=== PATIENT | female | born 1990 ===

== ENCOUNTER 2016-09-25 00:10 | Emergency (ER) | payer BC, OTHER ==
[2016-09-25 00:18] VITALS: BP 116/63; PULSE 76; RESP 16; TEMP 97.9; O2SAT 98
--- NOTE | 2016-09-25 01:28 | ED PDOC ---
HPI: General Adult Time Seen by Provider: 09/25/16 01:05 Chief Complaint (Nursing): Shortness Of Breath Chief Complaint (Provider): SOB, anxiety History Per: Patient History/Exam Limitations: no limitations Onset/Duration Of Symptoms: Hrs Have you had recent travel within the past 21 days to any of the following countries: [place], [place], [place] or [place]?: No Current Symptoms Are (Timing): Still Present Additional Complaint(s): 25yo female with no PMHx presents to the ED with c/o difficulty breathing and anxiety. Patient reports she began feeling anxious about an exam she has in October and subsequently began to experience shortness of breath. Denies fever, cough, chest pain, v/d, abdominal pain, recent travel, leg swelling. Past Medical History Reviewed: Historical Data, Nursing Documentation, Vital Signs Vital Signs: Last Vital Signs Temp 97.9 F 09/25/16 00:15 Pulse 76 09/25/16 00:15 Resp 16 09/25/16 00:30 BP 116/63 09/25/16 00:15 Pulse Ox 98 09/25/16 01:36 - Medical History PMH: No Chronic Diseases - Surgical History Surgical History: No Surg Hx - Family History Family History: States: No Known Family Hx - Social History Current smoker - smoking cessation education provided: No Alcohol: None Drugs: Denies - Home Medications Home Medications: Ambulatory Orders Medication Instructions Recorded Famotidine [Pepcid] 20 mg PO BID #20 tab 05/24/16 Nitrofurantoin Macrocrystals 100 mg PO BID #14 cap 05/24/16 [Macrobid] Ondansetron [Zofran Odt] 4 mg PO Q8H PRN #15 odt 05/24/16 - Allergies Allergies/Adverse Reactions: Allergies Allergy/AdvReac Type Severity Reaction Status Date / Time No Known Allergies Allergy Verified 05/24/16 10:26 Review of Systems ROS Statement: Except As Marked, All Systems Reviewed And Found Negative Constitutional: Negative for: Fever Cardiovascular: Negative for: Chest Pain Respiratory: Positive for: Shortness of Breath. Negative for: Cough Gastrointestinal: Negative for: Vomiting, Abdominal Pain, Diarrhea Psych: Positive for: Anxiety. Negative for: Depression, Psychosis, Suicidal ideation Physical Exam - Reviewed Nursing Documentation Reviewed: Yes Vital Signs Reviewed: Yes - Physical Exam Appears: Positive for: Well, No Acute Distress Head Exam: Positive for: ATRAUMATIC, NORMAL INSPECTION, NORMOCEPHALIC Skin: Positive for: Normal Color, Warm, Dry Eye Exam: Positive for: Normal appearance, EOMI, PERRL ENT: Positive for: Normal ENT Inspection Neck: Positive for: Normal, Painless ROM, Supple Cardiovascular/Chest: Positive for: Regular Rate, Rhythm. Negative for: Murmur , Tachycardia Respiratory: Positive for: Normal Breath Sounds. Negative for: Wheezing, Respiratory Distress Gastrointestinal/Abdominal: Positive for: Normal Exam, Bowel Sounds, Soft. Negative for: Tenderness Back: Positive for: Normal Inspection. Negative for: L CVA Tenderness, R CVA Tenderness Extremity: Positive for: Normal ROM. Negative for: Deformity, Swelling Neurologic/Psych: Positive for: Alert, Oriented, Mood/Affect (anxious ). Negative for: Motor/Sensory Deficits - ECG O2 Sat by Pulse Oximetry: 98 Pulse Ox Interpretation: Normal (RA) Medical Decision Making Medical Decision Makin: Impression: anxiety, r/o PE vs. atypical chest pain Plan: Labs reassess Pt refusing to stay for completion of workup and treatment. states she had bloodwork done last week and understands she is leaving without workup. understands she must follow up wtih her primary doctor tomrow. and if symptoms worsen to come back immediately Scribe Attestation: Documented by Karthik Shannon acting as a scribe for Nic Lin MD. Provider Scribe Attestation: All medical record entries made by the Scribe were at my direction and personally dictated by me. I have reviewed the chart and agree that the record accurately reflects my personal performance of the history, physical exam, medical decision making, and the department course for this patient. I have also personally directed, reviewed, and agree with the discharge instructions and disposition. Disposition - Clinical Impression Clinical Impression: Atypical chest pain - Patient ED Disposition Is Patient to be Admitted: No - Disposition Disposition: Left W/O Treatment Disposition Time: 01:30 Condition: STABLE
== END 2016-09-25 01:30 | disposition left against medical advice (07) ==
LOC: H.ER 00:10
DX: R07.89 Other chest pain (principal); F41.9 Anxiety disorder, unspecified

== ENCOUNTER 2016-09-25 13:57 | Emergency (ER) | payer BC ==
[2016-09-25 14:07] VITALS: BP 110/72; PULSE 90; TEMP 98; O2SAT 98
[2016-09-25] MEDS ORDERED: Sodium Chloride 0.9% 1,000 ML IV STA (14:34)
--- NOTE | 2016-09-25 14:42 | ED PDOC ---
HPI: SOB/CHF/COPD Time Seen by Provider: 09/25/16 14:16 Chief Complaint (Nursing): Shortness Of Breath Chief Complaint (Provider): Dyspnea History Per: Patient History/Exam Limitations: no limitations Onset/Duration Of Symptoms: Days (Yesterday) Current Symptoms Are (Timing): Gone Now Additional Complaint(s): Pt. with dyspnea last night when she was studying. Started suddenly. Came to the ER and advised to get blood work and ct chest. EKG was done, but pt. refused the other stuff and left. She had an appt to go to. Went to her pcp today and was told to go to the ER for CT. Has no symptoms currently. No dyspnea, weakness, chest pain, headaches, dizziness. No calf pain, long distance travel, control pills. Past Medical History Reviewed: Nursing Documentation, Vital Signs Vital Signs: Last Vital Signs Temp 98 F 09/25/16 14:04 Pulse 90 09/25/16 14:04 Resp 14 09/25/16 16:04 BP 110/72 09/25/16 14:04 Pulse Ox 98 09/25/16 14:45 - Medical History PMH: No Chronic Diseases - Surgical History Surgical History: No Surg Hx - Family History Family History: States: Unknown Family Hx - Home Medications Home Medications: Ambulatory Orders Medication Instructions Recorded Famotidine [Pepcid] 20 mg PO BID #20 tab 05/24/16 Nitrofurantoin Macrocrystals 100 mg PO BID #14 cap 05/24/16 [Macrobid] Ondansetron [Zofran Odt] 4 mg PO Q8H PRN #15 odt 05/24/16 - Allergies Allergies/Adverse Reactions: Allergies Allergy/AdvReac Type Severity Reaction Status Date / Time No Known Allergies Allergy Verified 05/24/16 10:26 Review of Systems ROS Statement: Except As Marked, All Systems Reviewed And Found Negative Cardiovascular: Negative for: Chest Pain Respiratory: Positive for: Shortness of Breath Physical Exam - Reviewed Nursing Documentation Reviewed: Yes Vital Signs Reviewed: Yes - Physical Exam Appears: Positive for: Well, Non-toxic, No Acute Distress Head Exam: Positive for: ATRAUMATIC, NORMAL INSPECTION, NORMOCEPHALIC Skin: Positive for: Normal Color, Warm, DRY Eye Exam: Positive for: EOMI, Normal appearance, PERRL ENT: Positive for: Normal ENT Inspection Neck: Positive for: Normal, Painless ROM Cardiovascular/Chest: Positive for: Regular Rate, Rhythm. Negative for: Edema Respiratory: Positive for: Normal Breath Sounds. Negative for: Accessory Muscle Use, Wheezing Gastrointestinal/Abdominal: Positive for: Normal Exam, Bowel Sounds, Soft. Negative for: Tenderness Back: Positive for: Normal Inspection. Negative for: L CVA Tenderness, R CVA Tenderness Extremity: Positive for: Normal ROM. Negative for: Tenderness, Pedal Edema Neurologic/Psych: Positive for: Alert, Oriented - Laboratory Results Result Diagrams: 09/25/16 14:50 09/25/16 14:50 Interpretation Of Abn Labs: no acute - ECG ECG: Positive for: Interpreted By Me, Viewed By Me (from yesterday) ECG Rhythm: Positive for: Normal QRS, Normal ST Segment, Sinus Rhythm O2 Sat by Pulse Oximetry: 98 Pulse Ox Interpretation: Normal - CT Scan/US ct Other Rad Studies (CT/US): Read By Radiologist Other Rad Interpretation: no acute - Progress ED Course And Treament: 1443: No symptoms. Agrees to get blood work and then CT. Symptom free. 1757: Stable. Pain free. Tolerated PO. Fu with pcp. Disposition - Clinical Impression Clinical Impression: Dyspnea - Patient ED Disposition Is Patient to be Admitted: No Counseled Patient/Family Regarding: Studies Performed, Diagnosis, Need For Followup - Disposition Referrals: [facility] [Outside] - 09/28/16 Disposition: Routine/Home Disposition Time: 17:58 Condition: STABLE Additional Instructions: Return if not better in 3 days. Instructions: Dyspnea (ED)
[2016-09-25 15:05] LABS: BASO # 0.1 K/uL (0.0-0.2); BASO % 0.6 % (0.0-2.0); EOS # 0.3 K/uL (0.0-0.7); EOS % 3.9 % (0.0-4.0); HEMATOCRIT 42.3 % (34.0-47.0); LYMPH # 1.8 K/uL (1.0-4.3); MEAN CELL VOLUME 88.1 fl (81.0-99.0); MEAN CORPUSCULAR HEMOGLOBIN 30.3 pg (27.0-31.0); MEAN CORPUSCULAR HGB CONC 34.3 g/dL (33.0-37.0); MONO # 0.5 K/uL (0.0-0.8); NEUT # 5.5 K/uL (1.8-7.0); NEUT % 67.5 % (50.0-75.0); NRBC % 0.1 % (0.0-0.0); RED CELL DISTRIBUTION WIDTH 12.5 % (11.5-14.5); WHITE BLOOD COUNT 8.1 K/uL (4.8-10.8)
[2016-09-25 15:15] LABS: ALB/GLOB RATIO 1.4 (1.0-2.1); ALKALINE PHOSPHATASE 60 U/L (38-126); ALT/SGPT 14 U/L (9-52); AST/SGOT 25 U/L (14-36); BILIRUBIN,TOTAL 0.4 mg/dl (0.2-1.3); BLOOD UREA NITROGEN 11 mg/dl (7-17); CALCIUM 9.5 mg/dL (8.4-10.2); CARBON DIOXIDE 25 mmol/L (22-30); CHLORIDE 106 mmol/L (98-107); GFR AFRICAN-AMERICAN > 60; GLUCOSE,RANDOM 96 mg/dL (65-105); POTASSIUM 3.7 MMOL/L (3.6-5.0); SODIUM 141 mmol/l (132-148); TOTAL PROTEIN 7.4 G/DL (6.3-8.2)
[2016-09-25] MEDS ORDERED: Iodixanol 320 MG/ML 100 ML BOTTLE IV ONE (16:26)
[2016-09-25] MEDS ORDERED: Sodium Chloride 0.9% 50 ML IV ONE (16:27)
[2016-09-25 16:35] VITALS: RESP 14
--- NOTE | 2016-09-25 17:40 | CT ---
PROCEDURE: CT Chest with contrast (Pulmonary Angiogram) HISTORY: chest pain r/o pe COMPARISON: None available. TECHNIQUE: Axial computed tomography images were obtained of the chest in the pulmonary arterial phase of enhancement. Coronal and sagittal reformatted images were created and reviewed. Intravenous contrast dose: 80 mL of Visipaque 320 Radiation dose: Total exam DLP = 257.66 mGy-cm. This CT exam was performed using one or more of the following dose reduction techniques: Automated exposure control, adjustment of the mA and/or kV according to patient size, and/or use of iterative reconstruction technique. FINDINGS: PULMONARY ARTERIES: Unremarkable. No pulmonary embolism. AORTA: No acute findings. No thoracic aortic aneurysm. LUNGS: Unremarkable. No nodule, mass or pulmonary consolidation. PLEURAL SPACES: Unremarkable. No effusion or pneuomothorax. HEART: Unremarkable. No cardiomegaly. No significant pericardial effusion. LYMPH NODES: No lymphadenopathy. BONES, CHEST WALL: Unremarkable. No fracture or destructive lesion OTHER FINDINGS: Unremarkable. IMPRESSION: No evidence of pulmonary embolus. No evidence of acute pulmonary disease.
== END 2016-09-25 18:11 | disposition home or self-care (01) ==
LOC: H.ER 13:57
DX: R06.00 Dyspnea, unspecified (principal); R07.9 Chest pain, unspecified
CPT/HCPCS: 71275; 80053; 81025; 84484; 85025; 96360; 99283; J7040; Q9967